=== PATIENT | female | born 1930 | race Caucasian/White ===

== ENCOUNTER 2016-08-18 10:20 | Day surgery (SDC) | payer MEDICARE, BC ==
[2016-08-13 14:20] VITALS: BMI 21.4
[~2016-08-18 10:20] MED LIST: ceFAZolin 1,000 MG in SODIUM CHLORIDE 0.9% IRRIGATIO 250 ML IRRIGATION ONE; ceFAZolin 2 GM in SODIUM CHLORIDE 0.9% 100 ML IVPB ONE
[2016-08-18] MEDS: SODIUM CHLORIDE 0.9% 1,000 ML IV SCH (11:31)
[2016-08-18 11:55] LABS: Anisocytosis Slight; Basophils % (A) 1 %; CH 33.7; CHCM 31.9; Eosinophils # (A) 0.3 k/uL (0-0.7); Eosinophils % (A) 6 %; HCT 32.5 % (34.0-46.0); HDW 3.11; HGB 10.1 gm/dL (11.4-16.0); Hypochromasia Slight; Luc # (Auto) 0.21; Luc % (Auto) 4; Lymphocytes # (A) 1.1 k/uL (1.0-4.8); Lymphocytes % (A) 20 %; MCHC 31.1 g/dL (31.0-37.0); MCV 106.1 fL (80.0-100.0); Macrocytosis Marked; Mean Platelet Volume 7.5; Monocytes # (A) 0.2 k/uL (0-1.0); Monocytes % (A) 5 %; Neutrophils # (A) 3.4 k/uL (1.3-7.7); Neutrophils % (A) 65 %; RBC 3.06 m/uL (3.80-5.40); RDW 18.2 % (11.5-15.5); WBC 5.3 k/uL (3.8-10.6); WBC (Perox) 5.29
[2016-08-18 11:58] LABS: Calcium 9.4 mg/dL (8.4-10.2); Potassium 4.9 mmol/L (3.5-5.1)
[2016-08-18] MEDS ORDERED: IODIXANOL 320 MG/ML 100 ML IV ONE ×2 (12:09→12:35)
[2016-08-18] MEDS ORDERED: fentaNYL (PF) 50 MCG/ML 2 ML AMP IV ONE (12:13)
[2016-08-18] MEDS ORDERED: MIDAZOLAM 2 MG/2 ML VIAL IV ONE (12:13)
[2016-08-18] MEDS ORDERED: LIDOCAINE 1% INJ 10MG/ML (20 ML MDV) SQ ONE (12:20)
[2016-08-18] MEDS ORDERED: ACETAMINOPHEN TAB 325 MG TAB PO PRN (13:28)
[2016-08-18] MEDS ORDERED: HYDROcodone/APAP 5-325MG 1 EACH TAB PO PRN (13:28)
[2016-08-18] MEDS ORDERED: METHOCARBAMOL 500 MG TAB PO PRN (13:29)
[2016-08-18] MEDS: CARBIDOPA-LEVODOPA 25-100 MG 1 EACH TAB PO SCH (16:54)
[2016-08-18] MEDS: ceFAZolin 2 GM in SODIUM CHLORIDE 0.9% 100 ML IVPB SCH (17:53)
[2016-08-18] MEDS ORDERED: FAMOTIDINE 20 MG TAB PO SCH (21:00)
[2016-08-18] MEDS: DOCUSATE 100 MG CAP PO SCH (21:07)
[2016-08-18] MEDS: MAGNESIUM OXIDE 400 MG TAB PO SCH (21:07)
[2016-08-19] MEDS: ceFAZolin 2 GM in SODIUM CHLORIDE 0.9% 100 ML IVPB SCH ×3 (00:54→11:42)
--- NOTE | 2016-08-19 07:23 | XR ---
EXAMINATION TYPE: XR chest 2V DATE OF EXAM: 08/19/2016 6:26 AM COMPARISON: NONE TECHNIQUE: PA and lateral views submitted. HISTORY: Pacemaker placement FINDINGS: Pacemaker seen with 2 leads. No sizable pneumothorax. Severe arthropathy of the shoulders with sublux ations and possible rheumatoid arthritis suggested. Correlate clinically. Heart is upper limits of no rmal. Postsurgical change cervical spine and degenerative change remaining vertebral column. IMPRESSION: 1. No postprocedural complication.
[2016-08-19] MEDS ORDERED: DONEPEZIL 10 MG TAB PO SCH (09:00)
[2016-08-19] MEDS ORDERED: ALLOPURINOL 100 MG TAB PO SCH (09:00)
[2016-08-19] MEDS ORDERED: PANTOPRAZOLE 40 MG TABLET PO SCH (09:00)
[2016-08-19] MEDS: MAGNESIUM OXIDE 400 MG TAB PO SCH (10:11)
[2016-08-19] MEDS: DOCUSATE 100 MG CAP PO SCH (10:11)
[2016-08-19 10:12] LABS: Calcium 8.9 mg/dL (8.4-10.2); Potassium 4.4 mmol/L (3.5-5.1)
[2016-08-19] MEDS: CARBIDOPA-LEVODOPA 25-100 MG 1 EACH TAB PO SCH (10:12)
[2016-08-19] MEDS ORDERED: FOLIC ACID 1 MG TAB PO SCH (12:00)
[2016-08-19] MEDS ORDERED: POLYETHYLENE GLYCOL 3350 17 GM POWD.PACK PO SCH (12:00)
[2016-08-19 12:44] VITALS: BP 124/61; PULSE 77; RESP 14; TEMP 97.5
[2016-08-19] MEDS: SODIUM CHLORIDE 0.9% 1,000 ML IV SCH (12:57)
[2016-08-21] MEDS ORDERED: METHOTREXATE SODIUM 2.5 MG TAB PO SCH (12:00)
--- NOTE | 2016-08-26 08:21 | P.PCN ---
Date of Procedure: 08/18/16 Preoperative Diagnosis: High degree AV block and symptoms of fatigue Postoperative Diagnosis: The same Procedure(s) Performed: Dual-chamber permanent pacemaker implantation and axillary venography Implants: Indications for Procedure: Operative Findings: Description of Procedure: HISTORY: This is a 86-year-old female who was recently found to have bradycardia and evidence of advanced AV block with frequent 2-1 conduction and bradycardia. Patient has been complaining of fatigue and tiredness. She is advised to have permanent pacemaker implantation. CONSENT:I have discussed the risks, benefits and alternative therapies for the above-mentioned procedure and for both sedation/analgesia as well as necessary blood product administration, if indicated, as they pertain to this patient. The patient has indicated understanding and acceptance of the risks and procedures discussed. PROCEDURE: Patient was brought to the lab in a fasting state. Patient was prepped and draped in the usual fashion. Patient was given IV sedation with fentanyl and Versed. The skin below the left clavicle was infiltrated with lidocaine. An incision was made parallel to deltopectoral groove was deepened until the pectoral fascia was exposed. A pocket was created by blunt dissection and cautery. Axillary venography was performed to delineate the course of the axillary vein. 2 sticks were performed into extrathoracic portion of the axillary vein and 2 sheaths were advanced over the guidewires and left in subclavian vein. LEADS: ATRIAL: This is manufactured by [employer]. Model number is [id number] and the serial number is [id number] VENTRICULAR: This is manufactured by [employer]. Model number is [id number]. The serial number is [id number] THE DEVICE: This is manufactured by [employer]. Model number is [id number]. Serial number is [id number]. The ventricular lead is maneuvered l with help of a straight and curved stylets into the left ventricle apical region. Satisfactory position was obtained and threshold measurements were made. The atrial lead was then maneuvered into the right atrial appendage. And thresholds were obtained. THRESHOLDS: ATRIUM: The minimum patient threshold was 0.5 V at pulse width of 0.5 ms. The impedance is 460 ohms. The P-wave is 3.8 mV. VENTRICLE : The minimum patient threshold was 0.5 V at a pulse width of 0.5 ms. The impedance is 6 and 50 ohms. The R-wave was 6.6 mV. . The leads and pulse generator remained in the pocket after it was washed with antibiotics. Pocket was closed in the usual fashion. The fascia was closed with 2-0 Prolene ,the subcutaneous tissue was closed with 3-0 Prolene and the skin was closed with 4-0 Prolene. PROGRAMMING: MODE: DDD RATE: 60-100 OUTPUT: Atrium: 2.5 V at pulse width of 0.5 ms ventricle: 2.5 V at pulse width of 0.5 ms FINAL IMPRESSION: #1 axillary venography #2. Successful implantation of dual- chamber pacemaker. COMPLICATIONS: None PLAN: Patient will be monitored on the telemetry unit. If stable he'll be discharged home within 24 hours. Chest x-ray in the morning. Prophylactic antibacterial be continued
== END 2016-08-19 14:45 | disposition home or self-care (01) ==
LOC: CATHEP 10:20 → 3OBS 13:20 → CATHEP 08-19 14:45
PROVIDERS: ATTEND Internal Medicine Cardiovascular Disease
DX: I44.1 Atrioventricular block, second degree (principal); R00.1 Bradycardia, unspecified; Z79.82 Long term (current) use of aspirin; Z79.899 Other long term (current) drug therapy; M06.9 Rheumatoid arthritis, unspecified
CPT/HCPCS: 33208; 80048 ×2; 85025; 71020; C1894; C1769 ×2; C1892; C1898 ×2; C1785; J2250; Q9967; J0690 ×3; J2001; J3010